=== PATIENT | female | born 1945 | race Caucasian/White ===

== ENCOUNTER 2016-09-08 17:08 | Inpatient (IN) | payer BC, MEDICARE ==
[2016-09-08 17:16] LABS: Glucose,Whole Blood 128 mg/dL (75-99)
[2016-09-08] MEDS ORDERED: SODIUM CHLORIDE 0.9% 1,000 ML IV STA (17:23)
--- NOTE | 2016-09-08 17:35 | ED ---
General Adult HPI - General Chief complaint: Neuro Symptoms/Deficit Stated complaint: Poss TIA Time Seen by Provider: 09/08/16 17:14 Source: patient, RN notes reviewed Mode of arrival: ambulatory Limitations: no limitations - History of Present Illness Initial comments: Patient is a pleasant 71-year-old female sitting to the emergency department complaining of paresthesias. Patient has had approximately 5 episodes over the past week. Patient has tingling of her left face and left arm. Patient states the episode last night she had decreased sensation with touch and also had some blurry vision. Patient had another episode today with just paresthesias lasting around 15 minutes. Patient is currently symptom-free. Sometimes patient has mild headache associated. No weakness. No facial droop. Patient has a known degree of carotid stenosis around 75 or 80%. This was diagnosed by a vascular surgeon approximate one year ago and the decision at that time was not to do intervention. - Related Data Home Medications Medication Instructions Recorded Confirmed Aspirin 325 mg PO DAILY 09/08/16 09/08/16 Clopidogrel [Plavix] 75 mg PO DAILY 09/08/16 09/08/16 Insulin NPH Hum/Reg Insulin Hm 60 unit SQ HS 09/08/16 09/08/16 [NovoLIN 70-30 100 UNIT/ML VIAL] Insulin Regular, Human [NovoLIN R] 20 unit SQ DAILY PRN 09/08/16 09/08/16 Lisinopril [Zestril] 20 mg PO DAILY 09/08/16 09/08/16 Metoprolol Tartrate [Lopressor] 50 mg PO BID 09/08/16 09/08/16 Omeprazole 20 mg PO BID 09/08/16 09/08/16 Simvastatin [Zocor] 80 mg PO HS 09/08/16 09/08/16 metFORMIN HCL [Glucophage] 500 mg PO W/SUPPER 09/08/16 09/08/16 Allergies Allergy/AdvReac Type Severity Reaction Status Date / Time Penicillins Allergy Unknown Verified 09/08/16 17:58 Review of Systems ROS Statement: Those systems with pertinent positive or pertinent negative responses have been documented in the HPI. ROS Other: All systems not noted in ROS Statement are negative. Constitutional: Denies: fever Eyes: Denies: eye pain ENT: Denies: ear pain Respiratory: Denies: cough Cardiovascular: Denies: chest pain Endocrine: Denies: fatigue Gastrointestinal: Denies: abdominal pain Genitourinary: Denies: dysuria Musculoskeletal: Denies: back pain Skin: Denies: rash Neurological: Denies: weakness, confusion Past Medical History Past Medical History: Diabetes Mellitus, Hypertension Additional Past Medical History / Comment(s): blocked carotid artery History of Any Multi-Drug Resistant Organisms: None Reported Additional Past Surgical History / Comment(s): cardiac stent Past Psychological History: No Psychological Hx Reported Smoking Status: Never smoker Past Alcohol Use History: None Reported Past Drug Use History: None Reported General Exam Limitations: no limitations General appearance: alert, in no apparent distress Head exam: Present: atraumatic, normocephalic Eye exam: Present: normal appearance, PERRL, EOMI. Absent: nystagmus ENT exam: Present: normal oropharynx Neck exam: Present: normal inspection Respiratory exam: Present: normal lung sounds bilaterally Cardiovascular Exam: Present: regular rate, normal rhythm GI/Abdominal exam: Present: soft. Absent: tenderness Extremities exam: Present: normal inspection Neurological exam: Present: alert, oriented X3, CN II-XII intact. Absent: motor sensory deficit Expanded Patient oriented to: Present: person, place, time Speech: Present: fluid speech Cranial nerves: EOM's Intact: Normal, Facial Sensation: Normal Cerebellar function: Finger to Nose: Normal Sensory exam: Upper Extremity Light Touch: Normal, Lower Extremity Light Touch: Normal Motor strength exam: RUE: 5, LUE: 5, RLE: 5, LLE: 5 Eye Response: (4) open spontaneously Motor Response: (6) obeys commands Verbal Response: (5) oriented Psychiatric exam: Present: normal affect, normal mood Skin exam: Absent: rash Course Vital Signs 09/08/16 09/08/16 17:23 18:30 Temperature 98.0 F Pulse Rate 84 78 Respiratory 20 18 Rate Blood Pressure 186/86 181/77 O2 Sat by Pulse 95 96 Oximetry EKG Findings - EKG Comments: EKG Findings:: Normal sinus rhythm 82. OR 152. QRS 94. QT 378. QTC 441. Normal axis. Septal Q waves. No acute ST change. Medical Decision Making - Medical Decision Making Patient reexamined and resting comfortably in bed. Patient remains symptom- free. Patient is not a TPA candidate secondary to symptom-free. Case discussed in detail with practitioner Re, who will admit for Dr. taylor , who admits for Dr. Duenas. Patient updated. - Lab Data Result diagrams: 09/08/16 17:28 09/08/16 17:28 Lab Results 09/08/16 09/08/16 09/08/16 Range/Units 17:15 17:28 17:28 WBC 10.3 (3.8-10.6) k/uL RBC 5.37 (3.80-5.40) m/uL Hgb 16.1 H (11.4-16.0) gm/dL Hct 46.3 H (34.0-46.0) % MCV 86.2 (80.0-100.0) fL MCH 29.9 (25.0-35.0) pg MCHC 34.7 (31.0-37.0) g/dL RDW 13.9 (11.5-15.5) % Plt Count 176 (150-450) k/uL Neutrophils % 69 % Lymphocytes % 20 % Monocytes % 9 % Eosinophils % 1 % Basophils % 1 % Neutrophils # 7.0 (1.3-7.7) k/uL Lymphocytes # 2.1 (1.0-4.8) k/uL Monocytes # 0.9 (0-1.0) k/uL Eosinophils # 0.1 (0-0.7) k/uL Basophils # 0.1 (0-0.2) k/uL Poikilocytosis Slight PT (9.0-12.0) sec INR (<1.1) APTT (22.0-30.0) sec Sodium (137-145) mmol/L Potassium (3.5-5.1) mmol/L Chloride (98-107) mmol/L Carbon Dioxide (22-30) mmol/L Anion Gap mmol/L BUN (7-17) mg/dL Creatinine (0.52-1.04) mg/dL Est GFR (MDRD) Af Amer (>60 ml/min/1.73 sqM) Est GFR (MDRD) Non-Af (>60 ml/min/1.73 sqM) Glucose (74-99) mg/dL POC Glucose (mg/dL) 128 H (75-99) mg/dL POC Glu [employer] ID Shantell Morales Calcium (8.4-10.2) mg/dL Total Bilirubin (0.2-1.3) mg/dL AST (14-36) U/L ALT (9-52) U/L Alkaline Phosphatase (38-126) U/L Total Creatine Kinase 147 H (30-135) U/L CK-MB (CK-2) 3.6 H* (0.0-2.4) ng/mL CK-MB (CK-2) Rel Index 2.4 Troponin I <0.012 (0.000-0.034) ng/mL Total Protein (6.3-8.2) g/dL Albumin (3.5-5.0) g/dL 09/08/16 09/08/16 Range/Units 17:28 17:28 WBC (3.8-10.6) k/uL RBC (3.80-5.40) m/uL Hgb (11.4-16.0) gm/dL Hct (34.0-46.0) % MCV (80.0-100.0) fL MCH (25.0-35.0) pg MCHC (31.0-37.0) g/dL RDW (11.5-15.5) % Plt Count (150-450) k/uL Neutrophils % % Lymphocytes % % Monocytes % % Eosinophils % % Basophils % % Neutrophils # (1.3-7.7) k/uL Lymphocytes # (1.0-4.8) k/uL Monocytes # (0-1.0) k/uL Eosinophils # (0-0.7) k/uL Basophils # (0-0.2) k/uL Poikilocytosis PT 10.4 (9.0-12.0) sec INR 1.0 (<1.1) APTT 22.6 (22.0-30.0) sec Sodium 142 (137-145) mmol/L Potassium 4.1 (3.5-5.1) mmol/L Chloride 106 (98-107) mmol/L Carbon Dioxide 25 (22-30) mmol/L Anion Gap 11 mmol/L BUN 27 H (7-17) mg/dL Creatinine 0.86 (0.52-1.04) mg/dL Est GFR (MDRD) Af Amer >60 (>60 ml/min/1.73 sqM) Est GFR (MDRD) Non-Af >60 (>60 ml/min/1.73 sqM) Glucose 140 H (74-99) mg/dL POC Glucose (mg/dL) (75-99) mg/dL POC Glu [employer] ID Calcium 10.5 H (8.4-10.2) mg/dL Total Bilirubin 1.2 (0.2-1.3) mg/dL AST 40 H (14-36) U/L ALT 42 (9-52) U/L Alkaline Phosphatase 73 (38-126) U/L Total Creatine Kinase (30-135) U/L CK-MB (CK-2) (0.0-2.4) ng/mL CK-MB (CK-2) Rel Index Troponin I (0.000-0.034) ng/mL Total Protein 7.6 (6.3-8.2) g/dL Albumin 4.6 (3.5-5.0) g/dL - Radiology Data Radiology results: image reviewed (Chest x-ray shows atelectasis. No acute process. Computed tomography scan the brain shows negative unenhanced head CT.) Disposition Clinical Impression: Transient cerebral ischemia Disposition: ADMITTED IP TO THIS HOSP Referrals: Fady Duenas MD [Primary Care Provider] - 1-2 days Time of Disposition: 19:24
[2016-09-08 17:56] LABS: Basophils # (A) 0.1 k/uL (0-0.2); Basophils % (A) 1 %; CH 30.4; CHCM 35.4; Eosinophils # (A) 0.1 k/uL (0-0.7); Eosinophils % (A) 1 %; HCT 46.3 % (34.0-46.0); HGB 16.1 gm/dL (11.4-16.0); Luc # (Auto) 0.15; Luc % (Auto) 1; Lymphocytes # (A) 2.1 k/uL (1.0-4.8); Lymphocytes % (A) 20 %; MCH 29.9 pg (25.0-35.0); MCHC 34.7 g/dL (31.0-37.0); MCV 86.2 fL (80.0-100.0); Mean Platelet Volume 8.7; Monocytes # (A) 0.9 k/uL (0-1.0); Monocytes % (A) 9 %; Neutrophils % (A) 69 %; Poikilocytosis Slight; RBC 5.37 m/uL (3.80-5.40); RDW 13.9 % (11.5-15.5); WBC 10.3 k/uL (3.8-10.6); WBC (Perox) 9.54
--- NOTE | 2016-09-08 18:02 | CT ---
EXAMINATION TYPE: CT brain wo con DATE OF EXAM: 09/08/2016 5:50 PM COMPARISON: NONE HISTORY: Left sided facial numbness and weakness CT DLP: 981.7 mGycm Automated exposure control for dose reduction was used. FINDINGS: Ventricles and sulci appear normal. There is no mass effect nor midline shift. There is no sign of in tracranial hemorrhage. The calvarium is intact. IMPRESSION: Negative unenhanced head CT scan.
[2016-09-08 18:03] LABS: ALT 42 U/L (9-52); AST 40 U/L (14-36); Alkaline Phosphatase 73 U/L (38-126); Anion Gap 11 mmol/L; Blood Urea Nitrogen 27 mg/dL (7-17); Calcium 10.5 mg/dL (8.4-10.2); Carbon Dioxide 25 mmol/L (22-30); Chloride 106 mmol/L (98-107); Glucose 140 mg/dL (74-99); Non-African American GFR(MDRD) >60 (>60 ml/min/1.73 sqM); Potassium 4.1 mmol/L (3.5-5.1); Sodium 142 mmol/L (137-145); Total Bilirubin 1.2 mg/dL (0.2-1.3); Total Protein 7.6 g/dL (6.3-8.2)
--- NOTE | 2016-09-08 18:03 | XR ---
EXAMINATION TYPE: XR chest 2V DATE OF EXAM: 09/08/2016 5:52 PM COMPARISON: NONE HISTORY: Headache and facial numbness TECHNIQUE: Frontal and lateral views of the chest are obtained. FINDINGS: Heart and mediastinum are normal. Lungs are clear of infiltrate. There is no pleural effus ion. There is minimal subsegmental atelectasis in the right middle lobe. There are are no hilar eloy s. There are chest leads. IMPRESSION: Mild subsegmental atelectasis in the right middle lobe. Normal heart.
[2016-09-08 18:05] LABS: Partial Thromboplastin Time 22.6 sec (22.0-30.0)
[2016-09-08 18:08] LABS: Prothrombin Time 10.4 sec (9.0-12.0)
[2016-09-08 18:12] LABS: Creatine Kinase 147 U/L (30-135)
[2016-09-08 18:24] LABS: Troponin I <0.012 ng/mL (0.000-0.034)
[2016-09-08 18:32] LABS: Creatine Kinase MB 3.6 ng/mL (0.0-2.4)
[2016-09-08] MEDS ORDERED: ASPIRIN 325 MG TAB PO STA (19:24)
[2016-09-08] MEDS: SODIUM CHLORIDE 0.9% 1,000 ML IV SCH (19:49)
[2016-09-08 20:28] VITALS: BMI 34.2
[2016-09-08 20:40] LABS: Glucose,Whole Blood 226 mg/dL (75-99)
[2016-09-08] MEDS ORDERED: INSULIN REGULAR 100 UNIT/ML VIAL SQ PRN (21:36)
--- NOTE | 2016-09-08 21:47 | US ---
EXAMINATION TYPE: US carotid duplex BILAT DATE OF EXAM: 09/08/2016 9:29 PM COMPARISON: NONE CLINICAL HISTORY: Stenosis. EXAM MEASUREMENTS: RIGHT: Peak Systolic Velocity (PSV) cm/sec ----- Right CCA: 75.5 ----- Right ICA: 230.9 ----- Right ECA: 187.2 ICA/CCA ratio: 3.1 RIGHT: End Diastole cm/sec ----- Right CCA: 11.5 ----- Right ICA: 22.2 ----- Right ECA: 12.6 LEFT: Peak Systolic Velocity (PSV) cm/sec ----- Left CCA: 103.2 ----- Left ICA: 139.8 ----- Left ECA: 197.6 ICA/CCA ratio: 1.4 LEFT: End Diastole cm/sec ----- Left CCA: 14.4 ----- Left ICA: 27.4 ----- Left ECA: 10.9 VERTEBRALS (direction of flow): Right Vertebral: Antegrade Left Vertebral: Antegrade Intimal thickening bilaterally. Moderate amount of plaque visualized in bilateral bulbs. Elevated garth ocities visualized in the right ICA, right bulb, right ECA, left ICA and left ECA. IMPRESSION: There is antegrade flow in the vertebral arteries. The images and measurement suggest 50-70% stenosis in the left internal carotid artery and well above 75% stenosis in the right internal carotid artery. Criteria for Assigning % of Stenosis / Diameter reduction (Estimation based on the indirect measurements of the internal carotid artery velocities (ICA PSV). 1. Normal (no stenosis)=ICA PSV < 125 cm/s: ratio < 2.0: ICA EDV<40 cm/s. 2. Less than 50% stenosis=ICA PSV < 125 cm/s: ratio < 2.0: ICA EDV<40 cm/s. 3. 50 to 69% stenosis=ICA PSV of 125 to 230 cm/s: ration 2.0 ? 4.0: ICA EDV 40-100 cm/s. 4. Greater than 70% stenosis to near occlusion= ICA PSV > 230 cm/s: ratio > 4.0: ICA EDV > 100 cm/s. 5. Near occlusion= ICA PSV velocities may be low or undetectable: variable ratio and ICA EDV. 6. Total occlusion=unable to detect flow.
[2016-09-08] MEDS: INSULIN LISPRO (humaLOG) 300 UNIT/3 ML VIAL SQ SCH (21:56)
[2016-09-08] MEDS: INSULIN NPH/REG INSULIN 70/30 300 UNIT/3 ML VIAL SQ SCH (21:56)
[2016-09-08] MEDS: hydrALAZINE HCL 20 MG/ML 1 ML VIAL IVP PRN (21:57)
[2016-09-08] MEDS ORDERED: ATORVASTATIN 40 MG TAB PO SCH (23:08)
[2016-09-08] MEDS: METOPROLOL TARTRATE 50 MG TAB PO SCH (23:50)
[2016-09-09 06:14] LABS: Glucose,Whole Blood 72 mg/dL (75-99)
[2016-09-09] MEDS: SODIUM CHLORIDE 0.9% 1,000 ML IV SCH ×2 (06:43→16:05)
[2016-09-09] MEDS: INSULIN LISPRO (humaLOG) 300 UNIT/3 ML VIAL SQ SCH ×4 (06:43→21:14)
[2016-09-09] MEDS: PANTOPRAZOLE 40 MG TABLET PO SCH (06:44)
[2016-09-09 07:02] LABS: Cholesterol 197 mg/dL (<200); HDL Cholesterol 52 mg/dL (40-60); Triglycerides 181 mg/dL (<150)
[2016-09-09] MEDS ORDERED: METOPROLOL TARTRATE 50 MG TAB PO SCH (09:00)
[2016-09-09] MEDS: CLOPIDOGREL 75 MG TAB PO SCH (10:04)
[2016-09-09] MEDS: ASPIRIN 325 MG TAB PO SCH (10:04)
[2016-09-09] MEDS: METOPROLOL TARTRATE 50 MG TAB PO SCH ×2 (10:04→21:11)
[2016-09-09] MEDS: LISINOPRIL 20 MG TAB PO SCH (10:04)
--- NOTE | 2016-09-09 11:17 | ECHOF ---
Referral Reason:Thrombus MEASUREMENTS -------- HEIGHT: 157.5 cm WEIGHT: 84.4 kg BP: 152/68 RVIDd: 2.9 cm (< 3.3) IVSd: 1.9 cm (0.6 - 1.1) LVIDd: 3.9 cm (3.9 - 5.3) LVPWd: 1.7 cm (0.6 - 1.1) IVSs: 2.3 cm LVIDs: 2.4 cm LVPWs: 2.1 cm LAESV Index (A-L): 25.44 ml/m Ao Diam: 2.8 cm (2.0 - 3.7) AV Cusp: 1.5 cm (1.5 - 2.6) LA Diam: 3.7 cm (2.7 - 3.8) MV EXCURSION: 12.495 mm (> 18.000) MV EF SLOPE: 45 mm/s (70 - 150) EPSS: 0.5 cm MV E Edin: 0.97 m/s MV DecT: 323 ms MV A Edin: 1.19 m/s MV E/A Ratio: 0.81 RAP: 5.00 mmHg RVSP: 24.97 mmHg FINDINGS -------- Sinus rhythm. This was a technically adequate study. There is severe concentric left ventricular hypertrophy. Overall left ventricular systolic function is normal with, an EF between 60 - 65 %. The right ventricle is normal in size and function. Normal LA size by volume 22+/-6 ml/m2. The right atrium is normal in size. Aortic valve is trileaflet and is mildly thickened. There is no evidence of aortic regurgitation. There is no evidence of aortic stenosis. The mitral valve leaflets are mildly thickened. There is trace to mild mitral regurgitation. Trace tricuspid regurgitation present. There is no evidence of pulmonary hypertension. The right ventricular systolic pressure, as measured by Doppler, is 24.97mmHg. The pulmonic valve is normal. The aortic root size is normal. The pericardium is normal. There is no pericardial effusion. CONCLUSIONS -------- 1. Sinus rhythm. 2. The right ventricular systolic pressure, as measured by Doppler, is 24.97mmHg. 3. The aortic root size is normal. 4. There is no pericardial effusion. 5. There is severe concentric left ventricular hypertrophy. 6. Overall left ventricular systolic function is normal with, an EF between 60 - 65 %. 7. Normal LA size by volume 22+/-6 ml/m2. 8. Aortic valve is trileaflet and is mildly thickened. 9. The mitral valve leaflets are mildly thickened. 10. There is trace to mild mitral regurgitation. 11. Trace tricuspid regurgitation present. 12. There is no evidence of pulmonary hypertension. BI SPECIALIST: Crow Garcia RDCS
[2016-09-09 11:58] LABS: Glucose,Whole Blood 119 mg/dL (75-99)
[2016-09-09] MEDS: hydrALAZINE HCL 20 MG/ML 1 ML VIAL IVP PRN (16:01)
[2016-09-09] MEDS: ENOXAPARIN 40 MG/0.4 ML SYRINGE SQ SCH (16:04)
[2016-09-09] MEDS ORDERED: RX INFO: IV CONTRAST WAS GIVEN 1 EACH MISC MISCELLANE PRN (16:08)
[2016-09-09 16:34] LABS: Glucose,Whole Blood 180 mg/dL (75-99)
[2016-09-09] MEDS: metFORMIN 500 MG TAB PO SCH (17:22)
--- NOTE | 2016-09-09 19:27 | CT ---
EXAMINATION TYPE: CT angio neck DATE OF EXAM: 09/09/2016 6:04 PM COMPARISON: NONE HISTORY: Carotid stenosis. CT DLP: 278.2 mGycm Automated exposure control for dose reduction was used. TECHNIQUE: Performed with IV Contrast, patient injected with 65 mL of Omnipaque 350. There are 3-D post processed images.. FINDINGS: There is a diminutive right vertebral artery. Left vertebral artery is large. There is arterial flow in the common internal and external carotid arteries bilaterally. There is dif fuse plaque at both carotid artery bifurcations. There is a short segment of approximate 60-70% steno sis at the origin of the right internal carotid artery. There is 50% stenosis origin right external c arotid artery. There is approximate 60% stenosis at the origin of the left internal carotid artery. There is 70-80% stenosis of the origin of the left external carotid artery. There is no evidence of aneurysm or disse ction. The basilar artery appears to fill mostly from the left side. There is intracranial arterial f low in the internal carotid arteries. There is normal branching pattern of the great vessels on the aortic arch. There is mild plaque at th e aortic arch. IMPRESSION: THE EXAM SHOWS BILATERAL STENOSIS AT THE ORIGINS OF THE INTERNAL AND EXTERNAL CAROTID ARTERIES ABO VE.
--- NOTE | 2016-09-09 19:29 | HP ---
DATE OF ADMISSION: 09/08/2016 PRESENTING COMPLAINT: Left-sided numbness. HISTORY OF PRESENTING COMPLAINT: This is a 71-year-old patient of Dr. Duenas whose chronic stable medical conditions include diabetes mellitus, type 2, hypertension, carotid artery stenosis, varicose veins (patient not sure which side). Patient presented with episodes of numbness around the left lip, jaw, left wrist; has had very slight blurring of the vision. She also an episode of tingling on the left side of the face. Patient had 2 episodes on Thursday and one episode on and one episode on Thursday. Admitted with the same. Initial CT scan was unremarkable. REVIEW OF SYSTEMS: CONSTITUTIONAL: None. HEENT: None. RESPIRATORY: None. CARDIOVASCULAR: None. GASTROINTESTINAL: None. GENITOURINARY: None. MUSCULOSKELETAL: None. DERMATOLOGICAL: None. HEMATOLOGICAL: None. LYMPHATIC: None. PSYCHIATRY: None. NEUROLOGICAL: As above. PAST MEDICAL HISTORY: 1. Diabetes. 2. Hypertension. 3. Carotid artery stenosis. 4. Hyperlipidemia. 5. Varicose veins. PAST SURGICAL HISTORY: 1. Adenoidectomy. 2. Cholecystectomy. 3. Tonsillectomy. 4. Bilateral retinal transplant. SOCIAL HISTORY: No smoking. No alcohol. Lives by herself. FAMILY HISTORY: Cancer and ALS. HOME MEDICATIONS: 1. Prilosec 20 mg b.i.d. 2. Novolin R 20 units subcutaneously daily p.r.n. 3. Aspirin 325 p.o. daily. 4. Zestril 20 mg p.o. daily. 5. Novolin 70/30 60 units subcutaneously at bedtime. 6. Plavix 75 mg a day. 7. Glucophage 500 mg p.o. with supper. 8. Zocor 80 mg at bedtime. 9. Lopressor 50 mg p.o. b.i.d. ALLERGIES: PENICILLIN. PHYSICAL EXAMINATION: VITAL SIGNS ON PRESENTATION: Temperature 98, pulse 84, respiration 20, blood pressure 186/86, pulse ox 95% on room air. GENERAL APPEARANCE: Well built; BMI of 34.0. Sitting up, comfortable. EYES: Pupils equal. Conjunctivae normal. HEENT: External appearance of nose and ears normal. Oral cavity normal. NECK: JVD not raised. Mass not palpable. RESPIRATORY: Effort normal. Lungs are clear. CARDIOVASCULAR: First and second sounds normal. No edema. ABDOMEN: Soft, nontender. Liver and spleen not palpable. LYMPHATIC: No lymph node palpable in neck or axillae. PSYCHIATRY: Alert and oriented x3. Mood and affect normal. NEUROLOGICAL: Pupils equal. Cranial nerves grossly intact. Power and sensation grossly intact. INVESTIGATIONS: White count 10.3, hemoglobin 16.1. Potassium 4.1. BUN 27, creatinine 0.86. Troponin less than 0.013. Accu-Cheks are noted. LDL is 109. Carotid Doppler shows more than 75% stenosis in the right internal carotid artery. ASSESSMENT: 1. Recurrent left-sided numbness with stenosis greater than 75% on the right internal carotid artery in a right-handed patient, likely ischemic in nature. 2. Diabetes mellitus, type 2. 3. Essential hypertension. 4. Varicose veins of lower extremity. 5. Hyperlipidemia. PLAN: Patient is already on aspirin and Plavix. Will change the Zocor to Lipitor. Accu-Cheks will be followed. Will get a vascular surgery consultation and order an arch study. Care was discussed with the patient. Neurology was consulted. Accu-Cheks are in place. Patient's speech is not affected.
[2016-09-09] MEDS ORDERED: ATORVASTATIN 40 MG TAB PO SCH (21:00)
[2016-09-09 21:13] LABS: Glucose,Whole Blood 191 mg/dL (75-99)
[2016-09-09] MEDS: ATORVASTATIN 80 MG TAB PO SCH (21:14)
[2016-09-09] MEDS: INSULIN NPH/REG INSULIN 70/30 300 UNIT/3 ML VIAL SQ SCH (21:14)
[2016-09-09] MEDS ORDERED: ALPRAZolam 0.25 MG TAB PO PRN (21:29)
--- NOTE | 2016-09-09 22:31 | P.CNNES ---
History of Present Illness Consult date: 09/09/16 History of Present Illness: The patient is a 71-year-old left-handed white female who reports that 5 weeks ago she had an episode of word finding difficulty. She reports that last week she experienced tingling in the left lip and left hand which lasted 15 minutes and recurred within 24 hours. Then last Thursday she had an episode similar to the one on Thursday which lasted 3-1/2 hours. On Thursday she saw her primary care physician who advised her to go to the emergency room. She states on Thursday she had a few more episodes associated with high blood pressure. She has been on Plavix and aspirin since 2002 after stent placement. Her aspirin dose was reduced 6 months ago from 325 mg to 81. Last Thursday she did increase her aspirin back to 325 mg a day. She has a history of carotid stenosis and states it was last checked 1-1/2 years ago when she was living in [place]. At a carotid ultrasound which showed 50-70% stenosis in the left ICA and over 75% stenosis in the right ICA he had a CTA showed bilateral stenosis at the origin of the internal and external carotids. Review of Systems Constitutional: Denies chills, Denies fever Eyes: denies blurred vision, denies pain Ears, nose, mouth and throat: Denies headache, Denies sore throat Cardiovascular: Denies chest pain, Denies shortness of breath Respiratory: Denies cough Neurological: Reports as per HPI Past Medical History Past Medical History: Diabetes Mellitus, Hypertension Additional Past Medical History / Comment(s): blocked carotid artery History of Any Multi-Drug Resistant Organisms: None Reported Past Surgical History: Adenoidectomy, Cholecystectomy, Tonsillectomy Additional Past Surgical History / Comment(s): cardiac stent , CATARACTS SURGERY , ELSIE RETINAL TRANSPLANT SURGERY Past Psychological History: No Psychological Hx Reported Smoking Status: Never smoker Past Alcohol Use History: None Reported Past Drug Use History: None Reported - Past Family History Mother Additional Family Medical History / Comment(s): ALS Father Family Medical History: AICD/Pacemaker, Cancer Medications and Allergies Home Medications Medication Instructions Recorded Confirmed Type Aspirin 325 mg PO DAILY 09/08/16 09/08/16 History Clopidogrel [Plavix] 75 mg PO DAILY 09/08/16 09/08/16 History Insulin NPH Hum/Reg Insulin Hm 60 unit SQ HS 09/08/16 09/08/16 History [NovoLIN 70-30 100 UNIT/ML VIAL] Insulin Regular, Human [NovoLIN R] 20 unit SQ DAILY PRN 09/08/16 09/08/16 History Lisinopril [Zestril] 20 mg PO DAILY 09/08/16 09/08/16 History Metoprolol Tartrate [Lopressor] 50 mg PO BID 09/08/16 09/08/16 History Omeprazole 20 mg PO BID 09/08/16 09/08/16 History Simvastatin [Zocor] 80 mg PO HS 09/08/16 09/08/16 History metFORMIN HCL [Glucophage] 500 mg PO W/SUPPER 09/08/16 09/08/16 History Allergies Allergy/AdvReac Type Severity Reaction Status Date / Time Penicillins Allergy Unknown Verified 09/08/16 17:58 Physical Examination - Vital Signs Vital Signs: Vital Signs Temp Pulse Resp BP BP Pulse Ox 09/09/16 20:00 97.6 F 74 18 174/86 95 09/09/16 16:00 72 18 09/09/16 15:48 72 18 189/89 09/09/16 12:00 55 L 18 142/77 96 09/09/16 08:00 97.0 F L 70 16 182/78 97 09/09/16 07:33 96 09/09/16 03:22 97.7 F 79 18 152/68 95 09/09/16 01:30 179/82 164/79 09/09/16 00:00 97.5 F L 71 18 208/83 96 Intake and Output 09/09/16 09/09/16 09/09/16 06:59 14:59 22:59 Intake Total 300 360 Output Total 1100 Balance -800 360 Intake: IV 300 Sodium Chloride 0.9% 1, 300 000 ml @ 100 mls/hr IV . Q10H [facility] Rx#:[id number] Oral 360 Output: Urine 1100 Other: Voiding Method Toilet Toilet Toilet # Voids 1 1 Weight 84.8 kg 84.8 kg Patient Weight 09/10/16 06:59 Weight 84.8 kg - Constitutional General appearance: average body habitus - EENT EENT: PERRL, mucous membranes moist, mucous membranes dry, hearing intact - Respiratory Respiratory: lungs clear - Cardiovascular Cardiovascular: regular rate, normal S1, normal S2 - Neurologic Mental status she was awake alert and oriented she answered questions appropriately there was no a aphasia or dysarthria Cranial nerve examination: PERRL, EOMI, VFF, V1/V2/V3 grossly intact, face symmetric, tongue midline Speech examination: intact Sensorimotor examination: intact Detailed motor examination: grossly full strength in all extremities - Psychiatric Psychiatric: mood/affect appropriate Results - Laboratory Findings CBC and BMP: 09/08/16 17:28 09/08/16 17:28 Abnormal Lab Findings: Abnormal Labs 09/08/16 09/08/16 09/08/16 17:15 17:28 17:28 Hgb 16.1 H Hct 46.3 H BUN Glucose POC Glucose (mg/dL) 128 H Calcium AST Total Creatine Kinase 147 H CK-MB (CK-2) 3.6 H* Triglycerides LDL Cholesterol, Calc 09/08/16 09/08/16 09/09/16 17:28 20:39 05:54 Hgb Hct BUN 27 H Glucose 140 H POC Glucose (mg/dL) 226 H Calcium 10.5 H AST 40 H Total Creatine Kinase CK-MB (CK-2) Triglycerides 181 H LDL Cholesterol, Calc 109 H 09/09/16 09/09/16 09/09/16 06:12 11:56 16:31 Hgb Hct BUN Glucose POC Glucose (mg/dL) 72 L 119 H 180 H Calcium AST Total Creatine Kinase CK-MB (CK-2) Triglycerides LDL Cholesterol, Calc 09/09/16 21:11 Hgb Hct BUN Glucose POC Glucose (mg/dL) 191 H Calcium AST Total Creatine Kinase CK-MB (CK-2) Triglycerides LDL Cholesterol, Calc Assessment and Plan (1) Transient cerebral ischemia Status: Acute Code(s): G45.9 - TRANSIENT CEREBRAL ISCHEMIC ATTACK, UNSPECIFIED Plan: The patient is a 71-year-old woman who's had recurrent episodes of left face and arm tingling. She has known carotid disease. Vascular surgery has been consulted . Neurologic examination is nonfocal. Recommend continue Plavix + 325 mg of aspirin. Await vascular surgery recommendations.
[2016-09-10] MEDS: SODIUM CHLORIDE 0.9% 1,000 ML IV SCH ×2 (04:34→11:47)
[2016-09-10 05:44] LABS: Glucose,Whole Blood 61 mg/dL (75-99)
[2016-09-10 06:17] LABS: Glucose,Whole Blood 93 mg/dL (75-99)
[2016-09-10] MEDS: INSULIN LISPRO (humaLOG) 300 UNIT/3 ML VIAL SQ SCH ×4 (06:38→21:09)
[2016-09-10] MEDS: PANTOPRAZOLE 40 MG TABLET PO SCH (06:39)
[2016-09-10] MEDS: LISINOPRIL 20 MG TAB PO SCH (08:51)
[2016-09-10] MEDS: ENOXAPARIN 40 MG/0.4 ML SYRINGE SQ SCH (08:52)
[2016-09-10] MEDS: ASPIRIN 325 MG TAB PO SCH (08:52)
[2016-09-10] MEDS: METOPROLOL TARTRATE 50 MG TAB PO SCH ×2 (08:52→21:15)
[2016-09-10] MEDS: CLOPIDOGREL 75 MG TAB PO SCH (08:52)
[2016-09-10 09:46] LABS: CHCM 33.6; HCT 46.4 % (34.0-46.0); HGB 15.1 gm/dL (11.4-16.0); MCH 29.3 pg (25.0-35.0); MCHC 32.6 g/dL (31.0-37.0); MCV 89.9 fL (80.0-100.0); Mean Platelet Volume 8.3; RBC 5.16 m/uL (3.80-5.40); WBC 7.8 k/uL (3.8-10.6)
[2016-09-10 10:13] LABS: Anion Gap 11 mmol/L; Blood Urea Nitrogen 23 mg/dL (7-17); Calcium 9.3 mg/dL (8.4-10.2); Carbon Dioxide 24 mmol/L (22-30); Chloride 105 mmol/L (98-107); Glucose 212 mg/dL (74-99); Non-African American GFR(MDRD) >60 (>60 ml/min/1.73 sqM); Sodium 140 mmol/L (137-145)
[2016-09-10 10:18] LABS: Potassium 4.1 mmol/L (3.5-5.1)
[2016-09-10 11:30] LABS: Glucose,Whole Blood 133 mg/dL (75-99)
--- NOTE | 2016-09-10 16:23 | P.GSCN ---
History of Present Illness History of present illness: 71 white female, patient came to the hospital with history of numbness around the left lip, jaw and left wrist some blurry vision she also had a history of tingling sensation on the left side of the face patient had 2 episodes on and 1 episode on and again she happened this on the when she was in the hospital with complete recovery her blood pressure was high she was controlled by medication Medical history history of hypertension, history of type 2 diabetes, Surgical history patient had a coronary artery stent placed 2 in 2003 and 2009 when she was in [place] On examination neck is supple Chest is clear to auscultation first and second sound normal Abdomen soft nontender vascular examination brachial radial femoral pulses are present Central nervous system patient is oriented time and place her motor function normal upper and lower ex extremity she never had loss of motor function most of the symptoms were sensory of CT of the carotid shows right side is 60-70% stenosis and left side is 60% stenosis patient is known for her carotid stenosis Plan is patient is on antiplatelet therapy I will discuss with neurology and internal medicine and we will discuss with the patient all the options follow with you Past Medical History Past Medical History: Diabetes Mellitus, Hypertension Additional Past Medical History / Comment(s): blocked carotid artery History of Any Multi-Drug Resistant Organisms: None Reported Past Surgical History: Adenoidectomy, Cholecystectomy, Tonsillectomy Additional Past Surgical History / Comment(s): cardiac stent , CATARACTS SURGERY , [employer] SURGERY Past Psychological History: No Psychological Hx Reported Smoking Status: Never smoker Past Alcohol Use History: None Reported Past Drug Use History: None Reported - Past Family History Mother Additional Family Medical History / Comment(s): ALS Father Family Medical History: AICD/Pacemaker, Cancer Medications and Allergies Home Medications Medication Instructions Recorded Confirmed Type Aspirin 325 mg PO DAILY 09/08/16 09/08/16 History Clopidogrel [Plavix] 75 mg PO DAILY 09/08/16 09/08/16 History Insulin NPH Hum/Reg Insulin Hm 60 unit SQ HS 09/08/16 09/08/16 History [NovoLIN 70-30 100 UNIT/ML VIAL] Insulin Regular, Human [NovoLIN R] 20 unit SQ DAILY PRN 09/08/16 09/08/16 History Lisinopril [Zestril] 20 mg PO DAILY 09/08/16 09/08/16 History Metoprolol Tartrate [Lopressor] 50 mg PO BID 09/08/16 09/08/16 History Omeprazole 20 mg PO BID 09/08/16 09/08/16 History Simvastatin [Zocor] 80 mg PO HS 09/08/16 09/08/16 History metFORMIN HCL [Glucophage] 500 mg PO W/SUPPER 09/08/16 09/08/16 History Allergies Allergy/AdvReac Type Severity Reaction Status Date / Time Penicillins Allergy Unknown Verified 09/08/16 17:58 Surgical - Exam Vital Signs Temp Pulse Resp BP Pulse Ox 98.0 F 84 20 186/86 95 09/08/16 17:23 09/08/16 17:23 09/08/16 17:23 09/08/16 17:23 09/08/16 17:23 Results - Labs 09/10/16 09:18 09/10/16 09:16 Abnormal Lab Results - Last 24 Hours (Table) 09/09/16 09/09/16 09/10/16 Range/Units 16:31 21:11 05:42 Hct (34.0-46.0) % Plt Count (150-450) k/uL BUN (7-17) mg/dL Glucose (74-99) mg/dL POC Glucose (mg/dL) 180 H 191 H 61 L (75-99) mg/dL 09/10/16 09/10/16 09/10/16 Range/Units 09:16 09:18 11:25 Hct 46.4 H (34.0-46.0) % Plt Count 147 L (150-450) k/uL BUN 23 H (7-17) mg/dL Glucose 212 H (74-99) mg/dL POC Glucose (mg/dL) 133 H (75-99) mg/dL Diabetes panel 09/10/16 Range/Units 09:16 Sodium 140 (137-145) mmol/L Potassium 4.1 (3.5-5.1) mmol/L Chloride 105 (98-107) mmol/L Carbon Dioxide 24 (22-30) mmol/L BUN 23 H (7-17) mg/dL Creatinine 0.87 (0.52-1.04) mg/dL Glucose 212 H (74-99) mg/dL Calcium 9.3 (8.4-10.2) mg/dL Calcium panel 09/10/16 Range/Units 09:16 Calcium 9.3 (8.4-10.2) mg/dL Pituitary panel 09/10/16 Range/Units 09:16 Sodium 140 (137-145) mmol/L Potassium 4.1 (3.5-5.1) mmol/L Chloride 105 (98-107) mmol/L Carbon Dioxide 24 (22-30) mmol/L BUN 23 H (7-17) mg/dL Creatinine 0.87 (0.52-1.04) mg/dL Glucose 212 H (74-99) mg/dL Calcium 9.3 (8.4-10.2) mg/dL Adrenal panel 09/10/16 Range/Units 09:16 Sodium 140 (137-145) mmol/L Potassium 4.1 (3.5-5.1) mmol/L Chloride 105 (98-107) mmol/L Carbon Dioxide 24 (22-30) mmol/L BUN 23 H (7-17) mg/dL Creatinine 0.87 (0.52-1.04) mg/dL Glucose 212 H (74-99) mg/dL Calcium 9.3 (8.4-10.2) mg/dL
[2016-09-10 16:43] LABS: Glucose,Whole Blood 145 mg/dL (75-99)
[2016-09-10] MEDS: metFORMIN 500 MG TAB PO SCH (17:06)
--- NOTE | 2016-09-10 18:28 | PN ---
DATE OF SERVICE: 09/10/2016 PRESENTING COMPLAINT: Left-sided numbness. INTERVAL HISTORY: This is a patient who presented with recurrent left-sided numbness and a stenosis greater than 75%. Today on exam patient is awake, sitting up; states that there is no further numbness on the left side of the face. Patient is awake, having no difficulties eating or drinking; no obvious deficits. Review of systems done for constitutional, cardiovascular, GI, pulmonary, with relevant findings as above. CURRENT MEDICATIONS: 1. Xanax. 2. Aspirin 325 mg p.o. daily. 3. Lipitor 80 mg p.o. daily. 4. Plavix 75 mg p.o. daily. 5. Lovenox 40 mg subcutaneously daily. 6. Insulin 70/30 60 units subcutaneously at bedtime. 7. Humalog before meals and at bedtime. 8. Lisinopril 20 mg p.o. daily. 9. Lopressor 50 mg p.o. b.i.d. PHYSICAL EXAMINATION: VITAL SIGNS: Temperature 96.9, pulse 72, respirations 18, blood pressure 161/77, oxygen saturation 97% on room air. GENERAL APPEARANCE: Patient is awake, alert, sitting up in bed, laughing and talking to her roommate. No acute distress. EYES: Pupils equal. Conjunctivae normal. NECK: JVD not raised. Mass not palpable. LUNGS: Clear to auscultation ( ) to the bilateral lower lobes. Respiratory effort normal. CARDIOVASCULAR: First and second sounds noted. No edema. ABDOMEN: Soft, nontender. Liver and spleen not palpable. PSYCHIATRY: Alert and oriented x3. Mood and affect are normal. INVESTIGATIONS: Blood glucose 212. Neurology recommends Plavix and 325 mg of aspirin. Vascular surgery recommendations pending. ASSESSMENT: 1. Recurrent left-sided numbness with stenosis greater than 75% in the right internal carotid artery in a right-handed patient, likely ischemic in nature. 2. Diabetes mellitus, type 2, on insulin. 3. Essential hypertension. 4. Varicose veins in the lower extremity. 5. Hyperlipidemia. PLAN: Patient is on aspirin and Plavix. Lipitor added. Will follow blood glucose monitoring. Awaiting vascular surgery recommendations. Patient is in agreement with the current plan of care. Will monitor. Patient was seen and examined by nurse practitioner Re Randall, and all elements of the case were discussed with attending, Dr. Johnston.
[2016-09-10 20:53] LABS: Glucose,Whole Blood 159 mg/dL (75-99)
[2016-09-10] MEDS: ATORVASTATIN 80 MG TAB PO SCH (21:15)
[2016-09-10] MEDS: INSULIN NPH/REG INSULIN 70/30 300 UNIT/3 ML VIAL SQ SCH (21:15)
[2016-09-11 06:35] LABS: Glucose,Whole Blood 72 mg/dL (75-99)
[2016-09-11] MEDS: INSULIN LISPRO (humaLOG) 300 UNIT/3 ML VIAL SQ SCH (06:51)
[2016-09-11] MEDS: SODIUM CHLORIDE 0.9% 1,000 ML IV SCH ×2 (06:51→07:51)
[2016-09-11] MEDS: PANTOPRAZOLE 40 MG TABLET PO SCH (07:08)
[2016-09-11] MEDS: hydrALAZINE HCL 20 MG/ML 1 ML VIAL IVP PRN (07:18)
[2016-09-11 07:52] VITALS: RESP 16; TEMP 98.2
[2016-09-11] MEDS: METOPROLOL TARTRATE 50 MG TAB PO SCH (07:52)
[2016-09-11] MEDS: LISINOPRIL 20 MG TAB PO SCH (07:53)
[2016-09-11] MEDS: CLOPIDOGREL 75 MG TAB PO SCH (07:53)
[2016-09-11] MEDS: ENOXAPARIN 40 MG/0.4 ML SYRINGE SQ SCH (07:53)
[2016-09-11] MEDS: ASPIRIN 325 MG TAB PO SCH (07:53)
[2016-09-11 08:21] VITALS: PULSE 73
[2016-09-11 09:16] LABS: Basophils # (A) 0.1 k/uL (0-0.2); Basophils % (A) 1 %; CH 29.8; CHCM 33.6; Eosinophils # (A) 0.1 k/uL (0-0.7); Eosinophils % (A) 1 %; HCT 51.2 % (34.0-46.0); Luc # (Auto) 0.14; Luc % (Auto) 2; Lymphocytes # (A) 1.5 k/uL (1.0-4.8); Lymphocytes % (A) 18 %; MCH 29.5 pg (25.0-35.0); MCHC 33.1 g/dL (31.0-37.0); MCV 89.2 fL (80.0-100.0); Mean Platelet Volume 8.3; Monocytes # (A) 0.7 k/uL (0-1.0); Monocytes % (A) 8 %; Neutrophils # (A) 5.9 k/uL (1.3-7.7); Neutrophils % (A) 71 %; RBC 5.74 m/uL (3.80-5.40); RDW 14.2 % (11.5-15.5); WBC 8.3 k/uL (3.8-10.6); WBC (Perox) 7.98
[2016-09-11 09:21] LABS: Anion Gap 16 mmol/L; Blood Urea Nitrogen 25 mg/dL (7-17); Calcium 10.1 mg/dL (8.4-10.2); Carbon Dioxide 23 mmol/L (22-30); Chloride 107 mmol/L (98-107); Glucose 121 mg/dL (74-99); Non-African American GFR(MDRD) >60 (>60 ml/min/1.73 sqM); Sodium 146 mmol/L (137-145)
[2016-09-11 09:42] VITALS: BP 159/73
--- NOTE | 2016-09-11 10:38 | PN ---
DATE OF SERVICE: 09/10/2016 ATTENDING NOTE: The patient was seen and examined by me on 09/10/2016. I reviewed the note of my nurse practitioner, Ms. Re Randall and I agree and discussed this. Patient presented with recurrent symptoms of facial numbness and left arm numbness. I did order ( ) study the results of which are noted. I had a lengthy talk with Dr. Alvarado from Vascular Surgery 2 or 3 times and also then discussed with the patient. The question is if this borderline stenosis in the right middle coronary artery is actually accounting for her symptoms. At this point is not entirely clear. Dr. Alvarado also discussed with Dr. Carlson from Neurology. He called me back again in the evening to discuss this again. At this point, he thinks he better wait and watch and go over the same. I did communicate this to the patient and she is okay with our decision. On examination, no focal deficits. Lungs are clear. . CARDIOVASCULAR: First and second sounds normal. ASSESSMENT: Recurrent left facial and left arm numbness with more than 70% stenosis on the right internal carotid artery. PLAN: Continue current medication and treatment plan, including antiplatelet agents and lipid-lower medications. Total time spent today was about 45 minutes or so, over 25 minutes of discussion.
[2016-09-11 11:56] LABS: Glucose,Whole Blood 125 mg/dL (75-99)
--- NOTE | 2016-09-12 09:11 | DS ---
DATE OF ADMISSION: 09/08/2016 DATE OF DISCHARGE: 09/11/2016 FINAL DIAGNOSES: 1. Recurrent left-sided numbness with stenosis greater than 75% in the right internal carotid artery in a right-handed patient, likely ischemic in nature. 2. Diabetes mellitus, type 2, on insulin. 3. Essential hypertension. 4. Varicose veins in the lower extremity. 5. Hyperlipidemia. Consultations with Dr. Lerner from Neurology and Dr. Alvarado from Vascular Surgery. HOSPITAL COURSE: This is a patient who presented with episodes of numbness around the lips, jaw, left wrist and some visual field blurring, episode of tingling on the left side of the face. She had multiple episodes. Therefore she was admitted. Neurology was consulted as was Vascular Surgery. CTA was performed showing bilateral stenosis at the internal and external carotids. Carotid Doppler revealed 50% to 70% stenosis in the left internal carotid artery and well above 75% in the right internal carotid artery. Echocardiogram revealed sinus rhythm and EF between 60 and 65%. Extensive discussions were had with the patient, Dr. Johnston, Dr. Carlson and Dr. Alvarado regarding the quantity of stenosis found and what intervention would be best. Patient agrees with the collective decision to wait and watch for the time being. Today, patient is awake, anxious to go home. She is up and about with no difficulties, eating her meals, moving about the room and the hallways with no assistance. Discussion was held regarding the plan as an outpatient. Patient is ready for discharge. On exam: NEUROLOGICAL: Patient is alert and oriented x3. Pupils equal. Conjunctivae normal. Face is symmetric. Tongue midline and speech is intact. No focal deficits noted. CARDIOVASCULAR: First and second sounds noted. No edema. LUNGS: Clear to auscultation. DISCHARGE MEDICATIONS: 1. Plavix 75 mg p.o. daily. 2. Novolin 70/30 60 units subcu at bedtime. 3. Regular insulin 20 units subcu daily p.r.n. 4. Lopressor 50 mg p.o. b.i.d. 5. Omeprazole 20 mg p.o. b.i.d. 6. Aspirin 81 mg p.o. daily. 7. Lipitor 80 mg p.o. at bedtime. 8. Lisinopril, hydrochlorothiazide 20/12.5 mg 1 tab p.o. b.i.d. 9. Metformin 500 mg p.o. b.i.d. Follow-up with Dr. Duenas on 09/16, Dr. Carlson in one week, Dr. Alvarado on 10/01/[address] Finn on 09/19/2016. Patient was seen and examined by nurse practitioner, Re Randall, and all the elements of the case were discussed with attending, Dr. Johnston.
--- NOTE | 2016-09-13 06:41 | DS ---
DATE OF ADMISSION: 09/08/2016 DATE OF DISCHARGE: 09/11/2016 ATTENDING NOTE: This patient was seen and examined by me on 09/11/16. I reviewed the discharge note of my nurse Practitioner, Ms. Randall. Agreed and discussed the same. Patient presents with recurrent TIA with the right internal carotid artery more than 75% on arch study. Patient has recurrent symptoms of numbness in distal left hand and around the mouth. Patient's arch studies not entirely convincing if they are responsible. Many discussions were held with Dr. Fisher and the patient. At this point Dr. Alvarado will follow the patient as an outpatient as he is not entirely convinced that this is actually causing his symptoms which I agree. Patient is okay with that. On exam and normal. No focal deficit. LUNGS: Clear. CARDIOVASCULAR: First and second sounds normal. Tests include carotid Doppler. NECK: CTA. Discharge planning more than 35 minutes. For more details refer to my [employer] note.
== END 2016-09-11 13:06 | disposition home or self-care (01) | DRG 68 ==
LOC: EC 17:08 → 6SEL 19:26
PROVIDERS: ADMIT Hospitalist; ATTEND Hospitalist
DX: I65.23 Occlusion and stenosis of bilateral carotid arteries (principal); Z94.89 Other transplanted organ and tissue status; E11.9 Type 2 diabetes mellitus without complications; I10 Essential (primary) hypertension; E78.5 Hyperlipidemia, unspecified; Z95.5 Presence of coronary angioplasty implant and graft; Z98.41 Cataract extraction status, right eye; Z98.42 Cataract extraction status, left eye; I83.90 Asymptomatic varicose veins of unspecified lower extremity; Z79.82 Long term (current) use of aspirin; Z79.02 Long term (current) use of antithrombotics/antiplatelets; Z79.4 Long term (current) use of insulin; Z79.84 Long term (current) use of oral hypoglycemic drugs; Z79.899 Other long term (current) drug therapy
CPT/HCPCS: 36415; 70450; 70498; 71020; 80048; 80053; 80061; 82550; 82553; 84484; 85025; 85027; 85610; 85730; 93005; 93306; 93880; 94760